=== PATIENT | male | born 2000 | race Caucasian/White ===

== ENCOUNTER 2021-09-18 12:32 | Emergency (ER) | payer OTHER, SELFPAY ==
--- NOTE | 2021-09-18 13:21 | ED.URI ---
HPI - URI/Sore Throat General Chief Complaint: Upper Respiratory Infection Stated Complaint: cough,sorethroat Time Seen by Provider: 09/18/21 13:18 Source: patient and RN notes reviewed Mode of arrival: ambulatory Limitations: no limitations History of Present Illness HPI Narrative: 20-year-old male who presents to [facility] with complaints of sore throat and cough with chills and fever for the past 3 days.Patient reports that he has been taking Delsym and Ibuprofen and using Albuterol nebulizer for his symptoms. Patient reports that he is COVID vaccinated and he did have flu shot this season.States that he just returned from [place] to see [employer], he is member of [employer].Patient denies any history of asthma but states that anytime he gets sick with cough he gets a reactive airway and albuterol nebs have been helping with cough. MD elicited complaint: cough and sore throat Pertinent past history: pneumonia and other (bronchitis) Onset (ago): day(s) (3) Consistency: constant Severity: moderate Pain scale (0-10): 5 Description of mucous: clear Able to tolerate fluids by mouth: Yes Associated symptoms: fever, chills, sore throat and cough Treatments prior to arrival: ibuprofen and other (Albuteol nebulizer, Delsym) Related Data Home Medications Medication Instructions Recorded Confirmed albuterol sulfate 0.63 mg INHALATION Q4H 09/18/21 09/18/21 Allergies Allergy/AdvReac Type Severity Reaction Status Date / Time No Known Allergies Allergy Verified 09/18/21 13:29 Review of Systems Review of Systems: CONSTITUTIONAL:Positive for fever, chills, or sweats. EYES: Denies visual changes, redness, or discharge. ENT: Denies rhinorrhea, congestion, positive sore throat, no otalgia. CARDIOVASCULAR: Denies chest pain, palpitations, or edema. RESPIRATORY: Positive cough no dyspnea. GASTROINTESTINAL: Denies abdominal pain, nausea, vomiting, or diarrhea. GENITOURINARY: Denies dysuria or hematuria. SKIN: Denies rash or itching. MUSCULOSKELETAL: Denies back pain, joint pain, or myalgia. NEUROLOGIC: Denies headache, numbness, or weakness. PSYCHIATRIC: Denies anxiety or depression. All systems reviewed & are unremarkable except as noted in HPI and below [facility] Past Medical History Medical History (Updated 09/18/21 @ 23:42 by Andressa Zaman NP) Bronchitis Pneumonia Surgical History Surgical History (Updated 09/18/21 @ 13:22 by Andressa Zaman NP) Hx of appendectomy Family History Family History Other Hypertension Social History Social History Smoking status: Never smoker Alcohol intake: never Comments At time of signature, agree with nursing past medical, surgical, social and family history. There is no relevant family history pertinent to the presenting complaint Exam Narrative: GENERAL: Well-appearing, well-nourished, and in no acute distress. HEAD: Normocephalic, atraumatic. EYES: PERRLA and EOMI. ENT: Nares clear, no rhinorrhea or epistaxis. Mucous membranes moist.TM's normal with good light reflex, throat red with no lesions or exudates, tonsils red with some swelling. NECK: Supple.no lymphadenopathy CHEST: Clear decreased to auscultation. No respiratory distress.harsh cough with SAO2 100% on room air HEART: Regular rate and rhythm. No murmur heard. Normal peripheral pulses. ABDOMEN: Soft, nontender, nondistended, normal active bowel sounds. EXTREMITIES: Normal range of motion. No edema. SKIN: Warm, dry, no rash. NEURO: No focal deficits. Alert and oriented x3. Course Course Level of Care: Express Care Visit Vital Signs Vital signs: Vital Signs Temperature 38.0 C H 09/18/21 13:24 Pulse Rate 97 09/18/21 13:24 Respiratory Rate 16 09/18/21 13:24 Blood Pressure 135/79 09/18/21 13:24 Pulse Oximetry 100 09/18/21 13:24 Temperature 38.0 C H 09/18/21 13:2
[2021-09-18 13:24] VITALS: BP 135/79; PULSE 97; RESP 16; TEMP 38; O2SAT 100
== END 2021-09-18 14:10 | disposition home or self-care (01) ==
PROVIDERS: Emergency Provider Registered Nurse; PCP Physician Assistant
DX: J10.1 Influenza due to other identified influenza virus with other respiratory manifestations (principal); J02.8 Acute pharyngitis due to other specified organisms; Z20.822 Contact with and (suspected) exposure to COVID-19
CPT/HCPCS: 87081; 87426; 87804; 87880; 99213; C9803; G0463